=== PATIENT | female | born 1970 | race Caucasian/White ===

== ENCOUNTER 2020-10-29 00:02 | Inpatient (IN) | payer MEDICAID, OTHER ==
[2020-10-29] VITALS (9 sets, daily range): BP systolic 115–166; BP diastolic 64–89
[~2020-10-29] VITALS: Ht 165.1 cm; Wt 78.1 kg
[~2020-10-29 00:02] MED LIST: AMLO5TAB88 PO; ASPI-1497 PO; ATOR40TA70 PO; CITA10TA9 PO; DOCU-138 PO; FAMO20TA8 PO; FERR-63 PO; FURO20TA4 PO; GABA-532 PO; LANTUSUD SUBCUT; LEVO50TA8 PO; PANT40TA51 PO; TRAM50TA3 PO; ZOLP5TAB2 PO
[2020-10-29 00:49] LABS: EOSINOPHILS % 2.2 % (0.0-5.0); HEMATOCRIT. 33.6 % (36.0-48.0); HEMOGLOBIN. 11.5 g/dL (12.0-16.0); LYMPHOCYTES % 34.7 % (20.0-50.0); MEAN CORPUSCULAR HEMOGLOBIN 27.4 pg (28.0-32.0); MEAN CORPUSCULAR VOLUME 79.7 fL (81.0-99.0); MEAN PLATELET VOLUME 7.9 fl (7.4-10.4); MONOCYTES % 10.2 % (2.0-8.0); NEUTROPHILS % 51.9 % (40.0-76.0); PLATELET 386 x1000/uL (130-400); RED BLOOD CELL COUNT 4.22 mill/uL (4.2-5.4); RED CELL DISTRIBUTION WIDTH 15.5 % (11.6-14.6)
[2020-10-29 00:55] LABS: CHLORIDE 100 mEq/L (98-107)
[2020-10-29] MEDS ORDERED: CEFTRIAXONE 1 G PREMIX 50 ML IV ONE (01:30)
[2020-10-29] MEDS ORDERED: SODIUM CHLORIDE 0.9% 1,000 ML IV ONE (01:30)
[2020-10-29] MEDS ORDERED: *PATIENT'S OWN MEDICATION STORAGE XX SCH (05:15)
[2020-10-29] MEDS ORDERED: CLONIDINE 0.2MG TABLET PO PRN (07:00)
[2020-10-29] MEDS ORDERED: ACETAMINOPHEN 325MG TABLET PO PRN (09:00)
[2020-10-29] MEDS ORDERED: ONDANSETRON HCL 4MG/2ML INJ IV PRN (09:00)
[2020-10-29] MEDS ORDERED: IPRATROPIUM/ALBUTEROL 0.5-3(2.5)MG/3ML NEB HHN PRN (09:00)
[2020-10-29] MEDS ORDERED: ENOXAPARIN 40MG/0.4ML SYR SUBCUT SCH (09:00)
[2020-10-29] MEDS ORDERED: MORPHINE SULFATE 2 MG/ML CPJ (NOT FOR IM USE) IV PRN (09:00)
[2020-10-29] MEDS ORDERED: DIPHENHYDRAMINE 50MG/ML VIAL IV PRN (09:00)
[2020-10-29] MEDS ORDERED: NPH,100V SQ (09:10)
[2020-10-29] MEDS ORDERED: INSU100V34 SQ (09:11)
[2020-10-29] MEDS ORDERED: DEXTROSE 50% WATER 50ML SYRINGE IV PRN (09:30)
[2020-10-29] MEDS: AMLODIPINE 10MG TABLET PO SCH (09:48)
[2020-10-29] MEDS: ASPIRIN 81MG TABLET PO SCH (09:49)
[2020-10-29] MEDS: ENOXAPARIN 30MG/0.3ML SYR SUBCUT SCH (09:49)
[2020-10-29] MEDS ORDERED: POTASSIUM CHLORIDE 20MEQ TABLET SR PO NR (10:30)
[2020-10-29] MEDS: SODIUM CHLORIDE 0.45% 1,000 ML IV SCH (11:26)
[2020-10-29] MEDS: BLOOD SUGAR DIAGNOSTIC STRIP TEST SCH ×3 (12:19→20:52)
[2020-10-29 12:29] LABS: CLARITY URINE CLEAR (CLEAR); COLOR URINE YELLOW (YELLOW); KETONES URINE NEGATIVE (NEGATIVE); LEUKOCYTE ESTERASE URINE NEGATIVE (NEGATIVE); NITRITE URINE NEGATIVE (NEGATIVE); OCCULT BLOOD URINE NEGATIVE (NEGATIVE); PH URINE 7.5 (4.5-8.0); PROTEIN URINE 2+ (NEGATIVE); SPECIFIC GRAVITY URINE 1.011 (1.005-1.030); UROBILINOGEN URINE 0.2 E.U./dL (0.2-1.0)
[2020-10-29] MEDS ORDERED: TRAMADOL 50MG TABLET PO PRN (12:30)
[2020-10-29] MEDS ORDERED: BLOOD SUGAR DIAGNOSTIC STRIP TEST SCH (12:30)
[2020-10-29] MEDS ORDERED: INSULIN LISPRO 100 UNITS/ML SUBCUT SCH (13:00)
[2020-10-29] MEDS: FERROUS SULFATE 325MG TABLET PO SCH (13:35)
[2020-10-29] MEDS: FUROSEMIDE 20MG TABLET PO SCH (13:35)
[2020-10-29] MEDS: INSULIN LISPRO 100 UNITS/ML SUBCUT SCH ×3 (13:37→20:57)
[2020-10-29] MEDS: INSULIN REGULAR (HUMULIN R) 300UNITS/3ML VIAL SUBCUT SCH ×2 (13:38→18:08)
[2020-10-29] MEDS: INSULIN GLARGINE UD 100 UNITS/ML SYR SUBCUT SCH (13:45)
[2020-10-29 16:09] LABS: CREATINE KINASE 69 IU/L (26-192)
[2020-10-29 16:10] LABS: CREATINE KINASE MB FRACTION < 1.0 ng/mL (0.5-3.6)
[2020-10-29] MEDS ORDERED: REGADENOSON 0.4 MG/5 ML IV NR (17:45)
[2020-10-29] MEDS ORDERED: ATORVASTATIN CALCIUM 40MG TABLET PO SCH (21:00)
[2020-10-29] MEDS ORDERED: ZOLPIDEM TARTRATE 5MG TABLET PO SCH (21:00)
[2020-10-29 23:22] LABS: CREATINE KINASE 62 IU/L (26-192)
[2020-10-29 23:24] LABS: CREATINE KINASE MB FRACTION < 1.0 ng/mL (0.5-3.6)
[2020-10-30] VITALS (8 sets, daily range): BP systolic 127–158; BP diastolic 53–84
[2020-10-30] MEDS: SODIUM CHLORIDE 0.45% 1,000 ML IV SCH ×2 (03:10→05:15)
[2020-10-30 05:16] LABS: CHLORIDE 103 mEq/L (98-107)
[2020-10-30 05:18] LABS: EOSINOPHILS % 4.1 % (0.0-5.0); HEMATOCRIT. 32.1 % (36.0-48.0); HEMOGLOBIN. 10.6 g/dL (12.0-16.0); LYMPHOCYTES % 40.8 % (20.0-50.0); MEAN CORPUSCULAR VOLUME 81.7 fL (81.0-99.0); MEAN PLATELET VOLUME 8.2 fl (7.4-10.4); MONOCYTES % 8.5 % (2.0-8.0); NEUTROPHILS % 45.6 % (40.0-76.0); PLATELET 300 x1000/uL (130-400); RED BLOOD CELL COUNT 3.92 mill/uL (4.2-5.4); RED CELL DISTRIBUTION WIDTH 15.2 % (11.6-14.6)
[2020-10-30 05:27] LABS: LDL CHOLESTEROL 101 mg/dL (5-100)
[2020-10-30 05:28] LABS: HDL CHOLESTEROL 60 mg/dL (40-59)
[2020-10-30] MEDS ORDERED: LEVOTHYROXINE SODIUM 50MCG TABLET PO SCH (07:30)
[2020-10-30] MEDS: BLOOD SUGAR DIAGNOSTIC STRIP TEST SCH ×2 (07:39→12:30)
[2020-10-30] MEDS: ASPIRIN 81MG TABLET PO SCH (08:49)
[2020-10-30] MEDS: FERROUS SULFATE 325MG TABLET PO SCH (08:49)
[2020-10-30] MEDS: ENOXAPARIN 30MG/0.3ML SYR SUBCUT SCH (08:49)
[2020-10-30] MEDS: FUROSEMIDE 20MG TABLET PO SCH (08:50)
[2020-10-30] MEDS: AMLODIPINE 10MG TABLET PO SCH (08:50)
[2020-10-30] MEDS: INSULIN LISPRO 100 UNITS/ML SUBCUT SCH ×2 (08:52→13:00)
[2020-10-30] MEDS: INSULIN GLARGINE UD 100 UNITS/ML SYR SUBCUT SCH (09:56)
[2020-10-30] MEDS: INSULIN REGULAR (HUMULIN R) 300UNITS/3ML VIAL SUBCUT SCH (09:58)
== END 2020-10-30 16:25 | disposition home or self-care (01) | DRG 203 ==
LOC: ER 00:50 → EDBEDREQ 01:45 → ENRESERV 02:30 → 5EST 04:15
PROVIDERS: ADMIT Internal Medicine; ATTEND Internal Medicine
DX: M94.0 Chondrocostal junction syndrome [Tietze] (principal); N17.9 Acute kidney failure, unspecified; E10.21 Type 1 diabetes mellitus with diabetic nephropathy; E27.1 Primary adrenocortical insufficiency; I16.0 Hypertensive urgency; E87.6 Hypokalemia; E03.9 Hypothyroidism, unspecified; E78.5 Hyperlipidemia, unspecified; H66.92 Otitis media, unspecified, left ear; Z20.822 Contact with and (suspected) exposure to COVID-19; I45.10 Unspecified right bundle-branch block; I12.9 Hypertensive chronic kidney disease with stage 1 through stage 4 chronic kidney disease, or unspecified chronic kidney disease; N18.9 Chronic kidney disease, unspecified; Z79.899 Other long term (current) drug therapy; Z79.82 Long term (current) use of aspirin
CPT/HCPCS: 36415; 76770; 80053; 80061; 81003; 82533; 82550; 82553; 82962; 83036; 83880; 84443; 84484; 85025; 87426; 93005; 93306; 93970; 99285; J0696; J1650; J1815; J2270; J7030; J7040